=== PATIENT | male | born 1930 | race Caucasian/White ===

== ENCOUNTER 2022-06-21 13:19 | Emergency (ER) | payer MEDICARE, MEDICAID ==
[~2022-06-21] VITALS: Ht 172.7 cm; Wt 40.5 kg
[2022-06-21] MEDS ORDERED: ECOT81TA5 PO (15:08)
[2022-06-21] MEDS ORDERED: MORPHINE 2 MG/ML 1ML VIAL IV ONE ×2 (15:15→17:50)
[2022-06-21] MEDS ORDERED: LIDOCAINE 5% (LIDODERM) PATCH TD ONE (15:15)
[2022-06-21 15:41] LABS: BASO % 0.4 % (0.0-1.0); EOS # 0.2 10^3/uL (0.0-0.5); HEMATOCRIT 39.3 % (42.0-52.0); HEMOGLOBIN 12.7 g/dl (13.5-17.5); LYMPH # 1.7 10^3/uL (1.5-5.0); LYMPH % 21.3 % (24.0-44.0); MEAN CORPUSCULAR HEMOGLOBIN 30.6 pg (27.0-33.0); MEAN CORPUSCULAR HGB CONC 32.3 g/dl (32.0-36.5); MEAN CORPUSCULAR VOLUME 94.7 fl (80.0-96.0); MONO # 0.7 10^3/uL (0.0-0.8); NEUTROPHILS # 5.2 10^3/uL (1.5-8.5); PLATELET COUNT, AUTOMATED 173 10^3/uL (150-450); RED BLOOD COUNT 4.15 10^6/uL (4.30-6.10); WHITE BLOOD COUNT 7.9 10^3/uL (4.0-10.0)
[2022-06-21 16:08] LABS: ALBUMIN 3.6 G/DL (3.2-5.2); BILIRUBIN,DIRECT 0.2 MG/DL (<0.4); BILIRUBIN,TOTAL 0.6 MG/DL (0.3-1.2); TOTAL PROTEIN 7.2 G/DL (5.7-8.2)
[2022-06-21] MEDS ORDERED: NS 500 ML IV ONE (16:10)
[2022-06-21] MEDS ORDERED: ISOVUE-370 76% 100ML VIAL As Ordered ONE (17:06)
[2022-06-21] MEDS ORDERED: KETOROLAC 30 MG/ML 1ML VIAL IV ONE (18:55)
[2022-06-21] MEDS ORDERED: ACETAMINOPHEN TAB 650MG DOSE (2X325MG) PO ONE (18:55)
[2022-06-21] MEDS ORDERED: ACET650T15 PO (19:18)
[2022-06-21] MEDS ORDERED: TRAM50TA2 PO (19:18)
[2022-06-21] MEDS ORDERED: LIDO5DIS41 TD (19:18)
[2022-06-21 19:45] VITALS: BP 174/77
== END 2022-06-21 20:07 | disposition home or self-care (01) ==
LOC: M ED 13:19
DX: S32.020A Wedge compression fracture of second lumbar vertebra, initial encounter for closed fracture (principal); M48.061 Spinal stenosis, lumbar region without neurogenic claudication; J90 Pleural effusion, not elsewhere classified
CPT/HCPCS: 71260; 72131; 74177; 80047; 80076; 83690; 85025; 96361; 96374; 96375; 96376; 99284; J1885; Q9967